=== PATIENT | female | born 1965 | race Caucasian/White ===

== ENCOUNTER 2018-03-26 13:04 | Emergency (ER) | payer BC ==
[~2018-03-26] VITALS: Ht 170.2 cm; Wt 101.0 kg
[2018-03-26 14:10] LABS: HEMATOCRIT 43.3 % (36.0-46.0); MCH 30.7 PG (29.0-34.0); MCHC 34.6 G/DL (30.0-36.0); MCV 88.7 FL (83-99); PLATELET COUNT 326 K/uL (156-360); RBC DIS.WIDTH-CV 12.3 % (11.8-14.6); RBC DIS.WIDTH-SD 40.3 % (39-53); RED BLOOD COUNT 4.88 M/uL (3.80-5.20); WHITE BLOOD COUNT 11.2 K/uL (4.1-10.2)
[2018-03-26 14:23] LABS: CHLORIDE 97 mEq/L (99-109); POTASSIUM 3.7 mEq/L (3.7-5.4); SODIUM 134 mEq/L (136-147)
[2018-03-26 14:25] LABS: GLUCOSE 304 mg/dL (70-99)
[2018-03-26 14:29] LABS: CREATININE 1.1 mg/dL (0.6-1.3); GFR ESTIMATE (CALCULATED) 56 mL/min/
[2018-03-26 14:30] LABS: UREA NITROGEN (BUN) 49 mg/dL (9-23)
[2018-03-26 15:11] LABS: APPEARANCE CLOUDY ((CLEAR)); BILIRUBIN NEGATIVE; BLOOD NEGATIVE; COLOR AMBER ((YELLOW)); GLUCOSE (STRIP) >=500; KETONES 20; LEUKOCYTES SMALL; NITRITE NEGATIVE; PROTEIN (STRIP) 100; SPECIFIC GRAVITY 1.022 (1.000-1.030)
[2018-03-26 15:37] LABS: RED BLOOD CELLS NONE SEEN /HPF (0-5)
[2018-03-26 15:38] LABS: BACTERIA RARE /HPF; EPITHELIAL CELLS 3+ /HPF; MUCUS NONE SEEN /LPF; UCUL ADDED? YES
[2018-03-26] MEDS ORDERED: KEFLEX500 MG PO (15:47)
[2018-03-26] MEDS ORDERED: BACTRIM,SEPT1 TABLET PO (15:47)
[2018-03-26] MEDS ORDERED: REGLAN10 MG PO (15:58)
[2018-03-26 16:07] VITALS: BP 131/74
== END 2018-03-26 16:10 | disposition home or self-care (01) ==
LOC: EME 13:04
PROVIDERS: Nurse Practitioner Family
DX: L02.214 Cutaneous abscess of groin (principal); R11.2 Nausea with vomiting, unspecified; E86.0 Dehydration; Z88.5 Allergy status to narcotic agent
CPT/HCPCS: 80048; 81003; 83605; 85027; 87040; 87086; 99281; 99285; J2765; J7030

== ENCOUNTER 2018-04-16 12:45 | Inpatient (IN) | payer BC ==
[~2018-04-16] VITALS: Ht 170.2 cm; Wt 100.4 kg
[~2018-04-16 12:45] MED LIST: BACTRIM,SEPT1 TABLET PO; KEFLEX500 MG PO; REGLAN10 MG PO
[2018-04-16 13:50] LABS: BASOPHIL (%) 1.1 % (0-1); BASOPHIL COUNT 0.1 K/uL (0-0.1); EOSINOPHIL (%) 1.9 % (0-5); EOSINOPHIL COUNT 0.1 K/uL (0-0.3); HEMATOCRIT 37.9 % (36.0-46.0); IMMATURE GRANULOCYTE (%) 1.7 % (0.0-0.7); LYMPHOCYTE (%) 21.1 % (15-42); LYMPHOCYTE COUNT 1.3 K/uL (1.0-2.8); MCH 30.3 PG (29.0-34.0); MCHC 34.3 G/DL (30.0-36.0); MCV 88.3 FL (83-99); MONOCYTE (%) 12.4 % (3-12); MONOCYTE COUNT 0.8 K/uL (0-0.8); NEUTROPHIL (%) 61.8 % (45-76); NEUTROPHIL COUNT 3.9 K/uL (1.8-6.4); PLATELET COUNT 385 K/uL (156-360); RBC DIS.WIDTH-CV 12.9 % (11.8-14.6); RBC DIS.WIDTH-SD 41.1 % (39-53); RED BLOOD COUNT 4.29 M/uL (3.80-5.20); WHITE BLOOD COUNT 6.3 K/uL (4.1-10.2)
[2018-04-16 13:52] LABS: CARBON DIOXIDE (BICARBONATE) 24.6 MEQ/L (20-31)
[2018-04-16 13:57] LABS: CHLORIDE 98 mEq/L (99-109); POTASSIUM 4.2 mEq/L (3.7-5.4); SODIUM 132 mEq/L (136-147)
[2018-04-16 13:59] LABS: GLUCOSE 487 mg/dL (70-99)
[2018-04-16 14:03] LABS: CREATININE 0.9 mg/dL (0.6-1.3); GFR ESTIMATE (CALCULATED) > 59 mL/min/; UREA NITROGEN (BUN) 14 mg/dL (9-23)
[2018-04-16] MEDS ORDERED: MOTRIN IB200 MG PO (17:23)
[2018-04-16] MEDS ORDERED: NOVOLIN N100 UNITS/ SC (17:39)
[2018-04-16 20:57] LABS: INTER. NORMALIZED RATIO 1.2
[2018-04-16 20:59] LABS: PTT 24.6 SEC (25-37)
[2018-04-16 21:09] VITALS: BP 116/84
[2018-04-16 21:27] VITALS: BP 116/84
[2018-04-16 23:54] VITALS: BP 102/67
[2018-04-17 02:37] VITALS: BP 127/76
[2018-04-17 05:58] LABS: HEMATOCRIT 29.1 % (36.0-46.0); MCH 30.2 PG (29.0-34.0); MCHC 33.3 G/DL (30.0-36.0); MCV 90.7 FL (83-99); PLATELET COUNT 281 K/uL (156-360); RBC DIS.WIDTH-CV 12.9 % (11.8-14.6); RBC DIS.WIDTH-SD 42.6 % (39-53); WHITE BLOOD COUNT 4.9 K/uL (4.1-10.2)
[2018-04-17 05:59] LABS: HEMOGLOBIN 9.7 G/DL (11.9-15.5); RED BLOOD COUNT 3.21 M/uL (3.80-5.20)
[2018-04-17 06:07] LABS: ALBUMIN 2.5 G/DL (3.2-4.8); ALKALINE PHOSPHATASE 58 IU/L (3-129); ALT (GPT) 5 IU/L (3-49); AST (GOT) < 7 IU/L (2-34); CHLORIDE 105 MEQ/L (99-109); CREATININE 0.7 MG/DL (0.6-1.3); GFR ESTIMATE (CALCULATED) > 59 mL/min/; GLUCOSE 324 mg/dL (70-99); HDL CHOLESTEROL 29 MG/DL (Desirable>=50); LDL CHOLESTEROL 78 mg/dL (Desirable<100); MAGNESIUM 1.5 mg/dl (1.3-2.7); NON-HDL CHOLESTEROL 106 mg/dL (Desirable<160); POTASSIUM 3.5 MEQ/L (3.7-5.4); SODIUM 134 MEQ/L (136-147); TOTAL BILIRUBIN 0.2 MG/DL (0.0-1.0); TOTAL CHOLESTEROL 135 mg/dL (Desirable<200); TOTAL PROTEIN 5.3 G/DL (6.4-8.3); TRIGLYCERIDES 141 MG/DL (Normal: <150); UREA NITROGEN (BUN) 14 mg/dL (9-23)
[2018-04-17 06:11] LABS: THYROTROPIN (TSH) 1.7 MIU/L (0.4-5.5)
[2018-04-17 08:45] VITALS: BP 135/83
[2018-04-17 10:59] LABS: TROP-I INTERPRETATION NEGATIVE; TROPONIN-I 0.01 ng/mL (0.0-0.30)
[2018-04-17 12:00] VITALS: BP 118/68
[2018-04-17 12:35] LABS: HEMOGLOBIN A1c (GLYCOHEMOGLOB) 13.1 % (Below 5.7)
[2018-04-17 15:43] VITALS: BP 144/91
[2018-04-17 19:30] VITALS: BP 141/76
[2018-04-17 23:38] VITALS: BP 125/75
[2018-04-18] VITALS (7 sets, daily range): BP systolic 118–188; BP diastolic 57–97
[2018-04-18 02:11] LABS: HEMATOCRIT 28.2 % (36.0-46.0); HEMOGLOBIN 9.4 G/DL (11.9-15.5); MCH 30.2 PG (29.0-34.0); MCHC 33.3 G/DL (30.0-36.0); MCV 90.7 FL (83-99); PLATELET COUNT 276 K/uL (156-360); RBC DIS.WIDTH-CV 13.2 % (11.8-14.6); RBC DIS.WIDTH-SD 43.4 % (39-53); RED BLOOD COUNT 3.11 M/uL (3.80-5.20)
[2018-04-18 02:28] LABS: POTASSIUM 3.5 mEq/L (3.7-5.4); SODIUM 136 mEq/L (136-147)
[2018-04-18 02:29] LABS: GLUCOSE 219 mg/dL (70-99)
[2018-04-18 02:33] LABS: CREATININE 0.8 mg/dL (0.6-1.3); GFR ESTIMATE (CALCULATED) > 59 mL/min/
[2018-04-18 02:34] LABS: UREA NITROGEN (BUN) 15 mg/dL (9-23)
[2018-04-18 02:40] LABS: CHLORIDE 108 mEq/L (99-109)
[2018-04-18 02:42] LABS: TROP-I INTERPRETATION NEGATIVE; TROPONIN-I < 0.01 ng/mL (0.0-0.30)
[2018-04-18 09:51] LABS: TROP-I INTERPRETATION NEGATIVE; TROPONIN-I < 0.01 ng/mL (0.0-0.30)
[2018-04-18 14:37] LABS: TROP-I INTERPRETATION NEGATIVE; TROPONIN-I < 0.01 ng/mL (0.0-0.30)
[2018-04-19 03:45] VITALS: BP 128/72
[2018-04-19 05:34] LABS: HEMATOCRIT 28.7 % (36.0-46.0); HEMOGLOBIN 9.2 G/DL (11.9-15.5); MCH 29.5 PG (29.0-34.0); MCHC 32.1 G/DL (30.0-36.0); PLATELET COUNT 263 K/uL (156-360); RBC DIS.WIDTH-CV 13.2 % (11.8-14.6); RBC DIS.WIDTH-SD 43.9 % (39-53); RED BLOOD COUNT 3.12 M/uL (3.80-5.20); WHITE BLOOD COUNT 5.9 K/uL (4.1-10.2)
[2018-04-19 06:22] LABS: CHLORIDE 105 MEQ/L (99-109); CREATININE 0.8 MG/DL (0.6-1.3); GFR ESTIMATE (CALCULATED) > 59 mL/min/; GLUCOSE 156 mg/dL (70-99); POTASSIUM 4.1 MEQ/L (3.7-5.4); SODIUM 138 MEQ/L (136-147); UREA NITROGEN (BUN) 12 mg/dL (9-23)
[2018-04-19 07:51] VITALS: BP 126/74
[2018-04-19] MEDS ORDERED: AMOX TR-K CLV1 EAC4 PO (08:47)
[2018-04-19] MEDS ORDERED: ELIQUIS5 MG PO (08:47)
[2018-04-19] MEDS ORDERED: AMLODIPINE BESYL5 MG PO (08:47)
== END 2018-04-19 11:37 | disposition home or self-care (01) | DRG 863 ==
LOC: EME 12:45 → EDOF 19:52 → 4EAST 19:52 → ENRESERV 19:54 → 4EAST 20:45
PROVIDERS: Emergency Medicine; Hospitalist; Internal Medicine; Internal Medicine Cardiovascular Disease
PROC: 0J9C3ZZ Drainage of Pelvic Region Subcutaneous Tissue and Fascia, Percutaneous Approach (ICD-10-PCS; principal; 2018-04-19)
DX: T81.4XXA Infection following a procedure, initial encounter (principal); E11.628 Type 2 diabetes mellitus with other skin complications; L03.314 Cellulitis of groin; L02.214 Cutaneous abscess of groin; L02.415 Cutaneous abscess of right lower limb; I48.0 Paroxysmal atrial fibrillation; E11.65 Type 2 diabetes mellitus with hyperglycemia; G47.33 Obstructive sleep apnea (adult) (pediatric); F17.210 Nicotine dependence, cigarettes, uncomplicated; L02.31 Cutaneous abscess of buttock; I10 Essential (primary) hypertension; K50.90 Crohn's disease, unspecified, without complications; N20.0 Calculus of kidney; E66.9 Obesity, unspecified; B95.1 Streptococcus, group B, as the cause of diseases classified elsewhere; Z68.32 Body mass index [BMI] 32.0-32.9, adult; Z98.84 Bariatric surgery status; Z86.14 Personal history of Methicillin resistant Staphylococcus aureus infection; Y92.89 Other specified places as the place of occurrence of the external cause
CPT/HCPCS: 71045; 74177; 80048; 80053; 80061; 80202; 82010; 82803; 82948; 83036; 83605; 83735; 84443; 84484; 85025; 85027; 85610; 85730; 87040; 87070; 87075; 87077; 87186; 87205; 87493; 87641; 93005; 93306; 93970; 94660; 94799; 99281; 99285; J0131; J0360; J1815; J1885; J2250; J2405; J2543; J3010; J3370; J7050; J7120; S0020